=== PATIENT | female | born 1960 | race American Indian/Alaskan Native ===

== ENCOUNTER 2017-12-30 16:01 | Emergency (ER) | payer OTHER ==
[2017-12-30 16:01] VITALS: BMI 36.1
[2017-12-30 16:31] VITALS: O2SAT 100
--- NOTE | 2017-12-30 16:31 | ED PDOC ---
Arrival/HPI - General Chief Complaint: Lower Extremity Problem/Injury Time Seen by Provider: 12/30/17 16:09 Historian: Patient - History of Present Illness Narrative History of Present Illness (Text): 12/30/17 16:41 A 57 year old female, whose past medical history includes hypertension and diabetes, accompanied by sister, presents to the emergency department complaining of left heel pain. Patient reports when stepping down on left foot is when pain occurs and is unable to ambulate well. Patient uses a cane. She denies any fall/trauma, or any other complaints at this time. Also, patient mentions visiting her associate agent insurance sales last week and states regularly visits for check -up. No PMD Past Medical History - Provider Review Nursing Documentation Reviewed: Yes - Tetanus Immunization Tetanus Immunization: Unknown - Cardiac Hx Cardiac Disorders: Yes Hx Hypertension: Yes - Pulmonary Hx Respiratory Disorders: No - Neurological Hx Neurological Disorder: No - HEENT Hx HEENT Disorder: No - Renal Hx Renal Disorder: No - Endocrine/Metabolic Hx Endocrine Disorders: Yes Hx Diabetes Mellitus Type 1: Yes - Hematological/Oncological Hx Blood Disorders: No - Integumentary Hx Dermatological Disorder: No - Musculoskeletal/Rheumatological Hx Musculoskeletal Disorders: No Hx Falls: No - Gastrointestinal Hx Gastrointestinal Disorders: No - Genitourinary/Gynecological Hx Genitourinary Disorders: No - Psychiatric Hx Psychophysiologic Disorder: No Hx Depression: No Hx Emotional Abuse: No Hx Physical Abuse: No Hx Substance Use: No - Past Surgical History Past Surgical History: Non-Contributing - Suicidal Assessment Feels Threatened In Home Enviroment: No Family/Social History - Physician Review Nursing Documentation Reviewed: Yes Family/Social History: No Known Family HX Smoking Status: Never Smoked Hx Alcohol Use: Yes (wine) Hx Substance Use: No Hx Substance Use Treatment: No Allergies/Home Meds Allergies/Adverse Reactions: Allergies No Known Allergies Allergy (Verified 12/30/17 16:19) Home Medications: Home Meds Medication Instructions Recorded Confirmed Insulin Glargine,Hum.rec.anlog 50 unit SC DAILY 07/03/13 12/30/17 [Lantus] DULoxetine [Cymbalta] 60 mg PO DAILY 10/01/16 12/30/17 Insulin Lispro [humALOG] 10 units SC .WITHMEALS 10/01/16 12/30/17 Levofloxacin [Levaquin] 500 mg PO DAILY 10/01/16 12/30/17 Metoprolol Succinate [Metoprolol 100 mg PO DAILY 10/01/16 12/30/17 Succinate] Olmesartan/Amlodipin/Hcthiazid 1 tab PO DAILY 10/01/16 12/30/17 [Tribenzor 40-10-25 mg Tablet] Review of Systems - Physician Review All systems were reviewed & negative as marked: Yes - Review of Systems Constitutional: absent: Other (patient denies any fall/trauma to left foot) Musculoskeletal: Other (pain to left heel, radiating slightly up lower leg) Physical Exam - Physical Exam Narrative Physical Exam (Text): Gen: VS reviewed, alert, well developed, well nourished, nontoxic, mild distress ENT: normal pharynx Eye: EOMI, PERRL Neck: no JVD, supple, no adenopathy CV: regular rate, regular rhythm, no rubs, no murmur, no gallops, S1, S2, pulses , equal and strong Pulm: no distress, clear to auscultation, no wheeze, no rhonchi, breath sounds equal, no rales Abd: soft, nontender, no guarding, no rebound, no rigidity, normal bowel sounds Ext: no edema Skin: good color, no rash, no cyanosis Psych: responds appropriately to questions, normal affect Neuro: oriented x 3, CN2-12 intact grossly, motor intact, sensation intact Vital Signs Reviewed: Yes Vital Signs Temp Pulse Resp BP Pulse Ox 12/30/17 18:07 18 12/30/17 18:04 97.9 F 71 18 134/78 100 12/30/17 16:22 97.6 F 74 16 138/86 100 Temperature: Afebrile Blood Pressure: Normal Pulse: Regular Respiratory Rate: Normal Appearance: Positive for: Well-Appearing, Non-Toxic, Comfortable Pain Distress: None Mental Status: Positive for: Alert and Oriented X 3 Medical Decision Making ED Course and Treatment: 12/30/17 16:42 Impression: 57 year old female with left heel pain. No acute findings on physical examination. Plan: -- Left Foot X-Ray -- Reassess and disposition Progress Notes: 12/30/17 19:49 patient was seen for heel pain, no trauma, no evidence of plantat fasciitis, or soft tissue infection. ddx including but not limited to muscles strain, tendonitis, arthritis. Patient was provided crutches, nsaids for pain control, patient referred to make a follow up appt with her associate agent insurance sales. - RAD Interpretation Radiology Orders: 12/30/17 16:38 FOOT LEFT 3 VIEWS ROUTINE [RAD] Stat - Scribe Statement The provider has reviewed the documentation as recorded by the Lizeth Aj Provider Scribe Attestation: All medical record entries made by the Scribe were at my direction and personally dictated by me. I have reviewed the chart and agree that the record accurately reflects my personal performance of the history, physical exam, medical decision making, and the department course for this patient. I have also personally directed, reviewed, and agree with the discharge instructions and disposition. Disposition/Present on Arrival - Present on Arrival Any Indicators Present on Arrival: No History of DVT/PE: No History of Uncontrolled Diabetes: No Urinary Catheter: No History of Decub. Ulcer: No History Surgical Site Infection Following: None - Disposition Have Diagnosis and Disposition been Completed?: Yes Diagnosis: Foot pain Disposition: HOME/ ROUTINE Disposition Time: 19:51 Condition: STABLE Discharge Instructions (ExitCare): Foot Care for Diabetics Print Language: ARGENTINE Additional Instructions: Follow up with your associate agent insurance sales as soon as possible. CHUNG YOUNGER, thank you for letting us take care of you today. Your provider was Dr. Husam Rowell and you were treated for LEFT FOOT PAIN. The emergency medical care you received today was directed at your acute symptoms. If you were prescribed any medication, please fill it and take as directed. It may take several days for your symptoms to resolve. Return to the Emergency Department if your symptoms worsen, do not improve, or if you have any other problems. Please contact your doctor or call one of the physicians/clinics you have been referred to that are listed on the Patient Visit Information form that is included in your discharge packet. Bring any paperwork you were given at discharge with you along with any medications you are taking to your follow up visit. Our treatment cannot replace ongoing medical care by a primary care provider outside of the emergency department. Thank you for allowing the [facility] team to be part of your care today. If you had an X-Ray or CT scan: A Radiologist will review the ED reading if any change in treatment is needed we will contact you. If you had a blood, urine, or wound culture: It will take several days for the results, if any change in treatment is needed we will contact you. If you had an STI test: It will take 48 hours for the results. Please call after 1 week if you have not heard back. Prescriptions: Ibuprofen [Motrin Tab] 600 mg PO QID #30 tab Forms: [facility] (Croatian), WORK NOTE
[2017-12-30 18:07] VITALS: BP 134/78; PULSE 71; RESP 18; TEMP 97.9
--- NOTE | 2017-12-31 10:13 | RAD ---
Date of service: 12/30/2017 PROCEDURE: Left Foot Radiographs. HISTORY: pain, focus plantar calcaneous COMPARISON: None. FINDINGS: BONES: Bone alignment and mineralization are normal. There is no acute displaced fracture or bone destruction. JOINTS: There is moderate degenerative osteoarthrosis in the talonavicular and subtalar joints. SOFT TISSUES: Normal. OTHER FINDINGS: None. IMPRESSION: No acute fracture or dislocation. 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
== END 2017-12-30 18:07 | disposition home or self-care (01) ==
LOC: ED 16:01
DX: M79.672 Pain in left foot (principal); E11.9 Type 2 diabetes mellitus without complications; I10 Essential (primary) hypertension

== ENCOUNTER 2018-01-23 21:12 | Emergency (ER) | payer OTHER ==
[2018-01-23 21:13] VITALS: BMI 36.1
--- NOTE | 2018-01-23 21:47 | ED PDOC ---
Arrival/HPI - General Chief Complaint: Trauma Time Seen by Provider: 01/23/18 21:15 Historian: Patient - History of Present Illness Narrative History of Present Illness (Text): 01/23/18 21:30 57 year old female, whose past medical history includes hypertension and diabetes, presents to the emergency department complaining of left knee and left elbow pain s/p fall. 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 Patient denies any fever, chills, chest pain, shortness of breath, nausea, vomiting, diarrhea, urinary symptoms, back pain, neck pain, headache, dizziness, or any other complaints/injuries. PMD: None Symptom Onset: Sudden Symptom Course: Unchanged Activities at Onset: Light Context: Work Past Medical History - Provider Review Nursing Documentation Reviewed: Yes - Infectious Disease Hx of Infectious Diseases: None - Tetanus Immunization Tetanus Immunization: Unknown - Cardiac Hx Cardiac Disorders: Yes Hx Hypertension: Yes - Pulmonary Hx Respiratory Disorders: No - Neurological Hx Neurological Disorder: No - HEENT Hx HEENT Disorder: No - Renal Hx Renal Disorder: No - Endocrine/Metabolic Hx Endocrine Disorders: Yes Hx Diabetes Mellitus Type 1: Yes - Hematological/Oncological Hx Blood Disorders: No - Integumentary Hx Dermatological Disorder: No - Musculoskeletal/Rheumatological Hx Musculoskeletal Disorders: No Hx Falls: No - Gastrointestinal Hx Gastrointestinal Disorders: No - Genitourinary/Gynecological Hx Genitourinary Disorders: No - Psychiatric Hx Psychophysiologic Disorder: No Hx Depression: No Hx Emotional Abuse: No Hx Physical Abuse: No Hx Substance Use: No - Past Surgical History Past Surgical History: Non-Contributing - Suicidal Assessment Feels Threatened In Home Enviroment: No Family/Social History - Physician Review Nursing Documentation Reviewed: Yes Family/Social History: No Known Family HX Smoking Status: Never Smoked Hx Alcohol Use: Yes (wine) Hx Substance Use: No Hx Substance Use Treatment: No Allergies/Home Meds Allergies/Adverse Reactions: Allergies No Known Allergies Allergy (Verified 12/30/17 16:19) Home Medications: Home Meds Medication Instructions Recorded Confirmed Insulin Glargine,Hum.rec.anlog 50 unit SC DAILY 07/03/13 12/30/17 [Lantus] DULoxetine [Cymbalta] 60 mg PO DAILY 10/01/16 12/30/17 Insulin Lispro [humALOG] 10 units SC .WITHMEALS 10/01/16 12/30/17 Levofloxacin [Levaquin] 500 mg PO DAILY 10/01/16 12/30/17 Metoprolol Succinate [Metoprolol 100 mg PO DAILY 10/01/16 12/30/17 Succinate] Olmesartan/Amlodipin/Hcthiazid 1 tab PO DAILY 10/01/16 12/30/17 [Tribenzor 40-10-25 mg Tablet] Review of Systems - Physician Review All systems were reviewed & negative as marked: Yes - Review of Systems Constitutional: absent: Fevers, Other (Chills) Respiratory: absent: SOB Cardiovascular: absent: Chest Pain Gastrointestinal: absent: Diarrhea, Nausea, Vomiting Genitourinary Female: absent: Dysuria, Frequency, Hematuria Musculoskeletal: Other (left knee and left elbow pain). absent: Back Pain, Neck Pain Neurological: absent: Headache, Dizziness Physical Exam Vital Signs Reviewed: Yes Vital Signs Pulse Ox 01/23/18 22:39 99 Appearance: Positive for: Well-Appearing, Non-Toxic, Comfortable Pain Distress: None Mental Status: Positive for: Alert and Oriented X 3 - Systems Exam Head: Present: Atraumatic, Normocephalic Pupils: Present: PERRL Extroacular Muscles: Present: EOMI Conjunctiva: Present: Normal Mouth: Present: Moist Mucous Membranes Neck: Present: Normal Range of Motion Respiratory/Chest: Present: Clear to Auscultation, Good Air Exchange. No: Respiratory Distress, Accessory Muscle Use Cardiovascular: Present: Regular Rate and Rhythm, Normal S1, S2. No: Murmurs Abdomen: No: Tenderness, Distention, Peritoneal Signs Back: Present: Normal Inspection Upper Extremity: Present: Normal Inspection. No: Cyanosis, Edema Lower Extremity: Present: Normal Inspection. No: Edema Neurological: Present: GCS=15, CN II-XII Intact, Speech Normal Skin: Present: Warm, Dry, Normal Color. No: Rashes Psychiatric: Present: Alert, Oriented x 3, Normal Insight, Normal Concentration Medical Decision Making ED Course and Treatment: 01/23/18 21:30 Impression: 57 year old female presents complaining of left knee and elbow pain s/p fall. Plan: -- Tylenol -- Elbow left 2V x-ray -- Knee Left 2V x-ray -- Reassess and disposition Prior Visits: Notes and results from previous visits were reviewed. Progress Notes: 01/23/18 22:34 Elbow left 2V x-ray Impression: As read by me, negative. Knee Left 2V x-ray Impression: As read by me, negative. 01/23/18 22:36 On re-evaluation, patient feels better and is in no acute distress. I have discussed the results and plan with the patient, who expresses understanding. Patient in agreement with plan to be discharged home. Patient is stable for discharge. Patient was instructed to follow up with physician or return if symptoms worsen or new concerning symptoms arise. - RAD Interpretation Radiology Orders: 01/23/18 21:28 ELBOW LEFT 3 VIEWS ROUTINE [RAD] Stat KNEE LEFT 2 VIEWS (AP & LAT) [RAD] Stat - Medication Orders Current Medication Orders: Discontinued Medications Acetaminophen (Tylenol 325mg Tab) 650 mg PO STAT STA Stop: 01/23/18 21:29 Last Admin: 01/23/18 21:36 Dose: 650 mg MAR Pain/Vitals Document 01/23/18 21:36 JOL (Rec: 01/23/18 21:37 JOL [id number]) Pain Reassessment Is This A Pain ReAssessment? No Sleep Is patient sleeping during reassessment? No Presence of Pain Presence of Pain Yes Pain Scale Used Pain Scale Used Numeric Location Left, Right or Bilateral Left Pain Location Body Site Elbow Intensity 5 Scale Used Numeric - Scribe Statement The provider has reviewed the documentation as recorded by the Scribe Scribe Attestation: Louise Holman MD Scribe Attestation: All medical record entries made by the Scribe were at my direction and personally dictated by me. I have reviewed the chart and agree that the record accurately reflects my personal performance of the history, physical exam, medical decision making, and the department course for this patient. I have also personally directed, reviewed, and agree with the discharge instructions and disposition. Disposition/Present on Arrival - Present on Arrival Any Indicators Present on Arrival: No History of DVT/PE: No History of Uncontrolled Diabetes: No Urinary Catheter: No History of Decub. Ulcer: No History Surgical Site Infection Following: None - Disposition Have Diagnosis and Disposition been Completed?: Yes Diagnosis: Contusion of knee, left, Elbow injury Disposition: HOME/ ROUTINE Disposition Time: 22:35 Condition: GOOD Discharge Instructions (ExitCare): Contusion (DC) Forms: [facility] (Sammarinese)
[2018-01-23 22:40] VITALS: O2SAT 99
--- NOTE | 2018-01-24 10:59 | RAD ---
Date of service: 01/23/2018 PROCEDURE: Left Knee Radiographs. HISTORY: Posttraumatic pain COMPARISON: None. FINDINGS: BONES: No acute fracture. Proliferative hypertrophic changes emanating from the femoral condyle and tibial plateau regions. JOINTS: Medial lateral compartment degenerative change. JOINT EFFUSION: None. OTHER FINDINGS: None. IMPRESSION: No acute findings related to/accounting for the clinical presentation. .
--- NOTE | 2018-01-24 10:59 | RAD ---
Date of service: 01/23/2018 PROCEDURE: Radiographs of the left elbow. HISTORY: fall COMPARISON: No prior. FINDINGS: BONES: Normal. No fracture. JOINTS: Normal. No osteoarthritis. SOFT TISSUES: Normal. JOINT EFFUSION: None. OTHER FINDINGS: None IMPRESSION: Unremarkable radiographs of the left elbow.
== END 2018-01-23 22:39 | disposition home or self-care (01) ==
LOC: ED 21:12
DX: S80.02XA Contusion of left knee, initial encounter (principal); S59.902A Unspecified injury of left elbow, initial encounter; W10.9XXA Fall (on) (from) unspecified stairs and steps, initial encounter; Y92.238 Other place in hospital as the place of occurrence of the external cause; Y99.0 Civilian activity done for income or pay

== ENCOUNTER 2018-05-21 21:11 | Emergency (ER) | payer OTHER ==
[2018-05-21 21:29] VITALS: RESP 18; BMI 35.2
--- NOTE | 2018-05-21 21:54 | ED PDOC ---
Arrival/HPI - General Chief Complaint: Weakness/Neurological Deficit Time Seen by Provider: 05/21/18 21:25 Historian: Patient - History of Present Illness Narrative History of Present Illness (Text): 05/21/18 21:50 57 year old female, whose past medical history includes hypertension and IDDM, presents to the emergency department with left hand pain an tingling, since 15:00 today. Patient states she was at work and began feeling intermittent pain in her left hand, with radiation to left arm. Patient informs of some intermittent tingling and numbness to the left arm as well. Patient states when pain comes on, she cannot squeeze things well with her left. Patient informs a previous diagnosis of carpal tunnel syndrome in the left hand, but has not followed up with neurologist. Patient denies any fevers, chills, headache, dizziness, chest pain, shortness of breath, cough, abdominal pain, nausea, vomiting, diarrhea, back pain, neck pain, urinary/bowel changes, or any other complaint. 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[place]) Past Medical History - Provider Review Nursing Documentation Reviewed: Yes - Infectious Disease Hx of Infectious Diseases: None - Tetanus Immunization Tetanus Immunization: Unknown - Cardiac Hx Cardiac Disorders: Yes Hx Hypertension: Yes - Pulmonary Hx Respiratory Disorders: No - Neurological Hx Neurological Disorder: No - HEENT Hx HEENT Disorder: No - Renal Hx Renal Disorder: No - Endocrine/Metabolic Hx Endocrine Disorders: Yes Hx Diabetes Mellitus Type 1: Yes - Hematological/Oncological Hx Blood Disorders: No - Integumentary Hx Dermatological Disorder: No - Musculoskeletal/Rheumatological Hx Musculoskeletal Disorders: No - Gastrointestinal Hx Gastrointestinal Disorders: No - Genitourinary/Gynecological Hx Genitourinary Disorders: No - Psychiatric Hx Psychophysiologic Disorder: No Hx Substance Use: No - Past Surgical History Past Surgical History: Non-Contributing - Suicidal Assessment Feels Threatened In Home Enviroment: No Family/Social History - Physician Review Nursing Documentation Reviewed: Yes Family/Social History: No Known Family HX Smoking Status: Never Smoked Hx Alcohol Use: Yes (wine) Hx Substance Use: No Hx Substance Use Treatment: No Allergies/Home Meds Allergies/Adverse Reactions: Allergies No Known Allergies Allergy (Verified 12/30/17 16:19) Home Medications: Home Meds Medication Instructions Recorded Confirmed Insulin Glargine,Hum.rec.anlog 50 unit SC DAILY 07/03/13 12/30/17 [Lantus] DULoxetine [Cymbalta] 60 mg PO DAILY 10/01/16 12/30/17 Insulin Lispro [humALOG] 10 units SC .WITHMEALS 10/01/16 12/30/17 Levofloxacin [Levaquin] 500 mg PO DAILY 10/01/16 12/30/17 Metoprolol Succinate 100 mg PO DAILY 10/01/16 12/30/17 Olmesartan/Amlodipin/Hcthiazid 1 tab PO DAILY 10/01/16 12/30/17 [Tribenzor 40-10-25 mg Tablet] Review of Systems - Physician Review All systems were reviewed & negative as marked: Yes - Review of Systems Constitutional: Normal. absent: Fevers, Night Sweats Eyes: Normal ENT: Normal Respiratory: Normal. absent: SOB, Cough Cardiovascular: Normal. absent: Chest Pain Gastrointestinal: Normal. absent: Abdominal Pain, Diarrhea, Nausea, Vomiting Genitourinary Female: Normal Musculoskeletal: Normal, Myalgias (pain in left hand ). absent: Back Pain, Neck Pain Skin: Normal Neurological: Normal. absent: Headache, Dizziness Endocrine: Normal Hemo/Lymphatic: Normal Psychiatric: Normal Physical Exam Vital Signs Reviewed: Yes Vital Signs Temp Pulse Resp BP Pulse Ox 05/21/18 21:15 97.7 F 81 18 110/74 99 Temperature: Afebrile Blood Pressure: Normal Pulse: Regular Respiratory Rate: Normal Appearance: Positive for: Well-Appearing, Non-Toxic, Comfortable Pain Distress: None Mental Status: Positive for: Alert and Oriented X 3 - Systems Exam Head: Present: Atraumatic, Normocephalic Pupils: Present: PERRL Extroacular Muscles: Present: EOMI Conjunctiva: Present: Normal Mouth: Present: Moist Mucous Membranes Neck: Present: Normal Range of Motion Respiratory/Chest: Present: Clear to Auscultation, Good Air Exchange. No: Respiratory Distress, Accessory Muscle Use Cardiovascular: Present: Regular Rate and Rhythm, Normal S1, S2. No: Murmurs Abdomen: No: Tenderness, Distention, Peritoneal Signs Back: Present: Normal Inspection Upper Extremity: Present: Normal Inspection. No: Cyanosis, Edema Lower Extremity: Present: Normal Inspection. No: Edema Neurological: Present: GCS=15, CN II-XII Intact, Speech Normal, Motor Func Grossly Intact, Normal Sensory Function, Normal Cerebellar Funct, Normal 2Pt Descrimination Skin: Present: Warm, Dry, Normal Color. No: Rashes Psychiatric: Present: Alert, Oriented x 3, Normal Insight, Normal Concentration Medical Decision Making ED Course and Treatment: 05/21/18 21:56 Impression: 57 year old female presents with left hand and left arm pain, weakness, and tingling. Plan: -- CT head -- Labs -- EKG -- Ibuprofen -- Reassess and disposition Prior Visits: Notes and results from previous visits were reviewed. Progress Notes: 05/21/18 23:23 Labs reviewed with MANUEL noted(creatinine 1.3; previously 0.8) and hypokalemia of 3.1. Findings provided to patient who does not desire to stay. She is adamant in following up with her PCP. CTH pending. - RAD Interpretation Narrative RAD Interpretations (Text): 05/22/18 00:21 CT of the head Clinical history: left upper extremity tingling. Technique: Multiple axial CT images were obtained through the head without administration of contrast. DLP 895.19 Comparison: None. Findings: The ventricles and sulci are symmetric bilaterally. There is no evidence of acute hemorrhage or infarct. There is no midline shift, mass effect, or extra-axial fluid collection. The osseous structures are unremarkable. The visualized paranasal sinuses and mastoid air cells are clear. Impression: Negative study. - Scribe Statement The provider has reviewed the documentation as recorded by the Lizeth Javier Provider Scribe Attestation: All medical record entries made by the Billibmarlene were at my direction and personally dictated by me. I have reviewed the chart and agree that the record accurately reflects my personal performance of the history, physical exam, medical decision making, and the department course for this patient. I have also personally directed, reviewed, and agree with the discharge instructions and di sposition. Disposition/Present on Arrival - Present on Arrival Any Indicators Present on Arrival: No History of DVT/PE: No History of Uncontrolled Diabetes: No Urinary Catheter: No History of Decub. Ulcer: No History Surgical Site Infection Following: None - Disposition Have Diagnosis and Disposition been Completed?: Yes Diagnosis: Elevated serum creatinine, Hypokalemia, Arm paresthesia, left Disposition: HOME/ ROUTINE Disposition Time: 00:24 Patient Plan: Discharge Patient Problems: Current Active Problems Problem Status Onset Elevated serum creatinine Acute Hypokalemia Acute Discharge Instructions (ExitCare): Paresthesias (DC), Hypokalemia (DC) Print Language: MONGOLIAN Additional Instructions: All medical record entries made by the Scribe were at my direction and personally dictated by me. I have reviewed the chart and agree that the record accurately reflects my personal performance of the history, physical exam, medical decision making, and the department course for this patient. I have also personally directed, reviewed, and agree with the discharge instructions and disposition. Your creatinine increased from 0.9 to 1.3, please monitor Your BUN increased from 24 to 34, please monitor Referrals: Lars Cummings MD [Staff Provider] - Follow up with primary Forms: [facility] (Vietnamese)
[2018-05-21 22:51] LABS: ALBUMIN 3.8 g/dL (3.0-4.8)
[2018-05-21 22:52] LABS: BASO # 0.02 K/mm3 (0.0-2.0); BASO % 0.5 % (0.0-3.0); EOS # 0.1 (0.0-0.7); EOS % 1.7 % (1.5-5.0); GRAN # 2.08 (1.4-6.5); GRAN % 50.6 % (50.0-68.0); HEMOGLOBIN 10.6 g/dL (12.0-16.0); LYMPH # 1.4 (1.2-3.4); LYMPH % 34.8 % (22.0-35.0); MEAN CELL VOLUME 81.6 fl (80.0-105.0); MEAN CORPUSCULAR HEMOGLOBIN 29.1 pg (25.0-35.0); MEAN CORPUSCULAR HGB CONC 35.7 g/dl (31.0-37.0); MONO # 0.5 (0.1-0.6); MONO % 12.4 % (1.0-6.0); RBC 3.64 10^6/uL (3.5-6.1); RED CELL DISTRIBUTION WIDTH 13.7 % (11.5-14.5); WHITE BLOOD COUNT 4.1 10^3/uL (4.5-11.0)
[2018-05-21] MEDS ORDERED: Potassium Chloride 40 mEq/30 ml LIQ UD PO STA (23:21)
[2018-05-21] MEDS ORDERED: Sodium Chloride 0.9% 1,000 ML IV STA (23:21)
[2018-05-22 03:05] VITALS: BP 131/68; PULSE 82; TEMP 97.8; O2SAT 100
--- NOTE | 2018-05-22 08:39 | CT ---
Date of service: 05/21/2018 PROCEDURE: CT HEAD WITHOUT CONTRAST. HISTORY: tingling to LUE COMPARISON: 06/24/2012 TECHNIQUE: Axial computed tomography images were obtained through the head/brain without intravenous contrast. Supplemental Coronal and Sagittal projections created and reviewed. Radiation dose: Total exam DLP = 895.19 mGy-cm. This CT exam was performed using one or more of the following dose reduction techniques: Automated exposure control, adjustment of the mA and/or kV according to patient size, and/or use of iterative reconstruction technique. FINDINGS: HEMORRHAGE: No intracranial hemorrhage. BRAIN: No mass effect or edema. No atrophy or chronic microvascular ischemic changes. VENTRICLES: Unremarkable. No hydrocephalus. CALVARIUM: Unremarkable. PARANASAL SINUSES: Unremarkable as visualized. No significant inflammatory changes. MASTOID AIR CELLS: Unremarkable as visualized. No inflammatory changes. OTHER FINDINGS: None. IMPRESSION: No acute intracranial abnormalities. No significant findings to account for the clinical presentation. No significant interval change compared to the prior examination(s). Concordant results (preliminary interpretation) provided by [employer]. Procedure Completed: 22:35. Preliminary Report: Dictated and Authenticated: 00:17. Final Interpretation: 08:35. May 22, 2018
== END 2018-05-22 00:34 | disposition home or self-care (01) ==
LOC: ED 21:11
DX: E87.6 Hypokalemia (principal); R74.8 Abnormal levels of other serum enzymes; R20.2 Paresthesia of skin; I10 Essential (primary) hypertension
CPT/HCPCS: 70450; 80053; 85025; 99285; J3480; J7030

== ENCOUNTER 2018-08-12 20:29 | Emergency (ER) | payer OTHER ==
[2018-08-12 20:33] VITALS: TEMP 97.8
[2018-08-12 20:40] VITALS: BMI 33.9
--- NOTE | 2018-08-12 20:43 | ED PDOC ---
Arrival/HPI - General Chief Complaint: Trauma Time Seen by Provider: 08/12/18 20:31 Historian: Patient - History of Present Illness Narrative History of Present Illness (Text): 08/12/18 20:39 57 year old female, whose past medical history includes hypertension and IDDM, presents to the emergency department complaining of left knee and left heel pain s/p trip and fall at work. Patient was working on the floor at [employer] [place] when she tr ipped over a commode injuring her left knee and left heel. Patient denies any loss of consciousness or head injury. She was able to get up without any assistance. Patient is currently on hypertension medication and admits to taking her dose prior to going to work today. Patient does report a history of lightheadedness, but denies any lightheadedness today. Patient denies any fever, chills, chest pain, shortness of breath, nausea, vomiting, diarrhea, urinary symptoms, back pain, neck pain, headache, dizziness, or any other complaints/Injuries. PMD: Dr. Dionisio Wasserman Time/Duration: Prior to Arrival Symptom Onset: Sudden Activities at Onset: Light Context: Work Past Medical History - Provider Review Nursing Documentation Reviewed: Yes - Infectious Disease Hx of Infectious Diseases: None - Tetanus Immunization Tetanus Immunization: Unknown - Cardiac Hx Cardiac Disorders: Yes Hx Hypertension: Yes - Pulmonary Hx Respiratory Disorders: No - Neurological Hx Neurological Disorder: No - HEENT Hx HEENT Disorder: No - Renal Hx Renal Disorder: No - Endocrine/Metabolic Hx Endocrine Disorders: Yes Hx Diabetes Mellitus Type 1: Yes - Hematological/Oncological Hx Blood Disorders: No - Integumentary Hx Dermatological Disorder: No - Musculoskeletal/Rheumatological Hx Musculoskeletal Disorders: No - Gastrointestinal Hx Gastrointestinal Disorders: No - Genitourinary/Gynecological Hx Genitourinary Disorders: No - Psychiatric Hx Psychophysiologic Disorder: No Hx Substance Use: No - Past Surgical History Past Surgical History: Non-Contributing - Suicidal Assessment Feels Threatened In Home Enviroment: No Family/Social History - Physician Review Nursing Documentation Reviewed: Yes Family/Social History: No Known Family HX Smoking Status: Never Smoked Hx Alcohol Use: Yes (wine) Hx Substance Use: No Hx Substance Use Treatment: No Allergies/Home Meds Allergies/Adverse Reactions: Allergies No Known Allergies Allergy (Verified 08/12/18 20:40) Home Medications: Home Meds Medication Instructions Recorded Confirmed Insulin Glargine,Hum.rec.anlog 50 unit SC DAILY 07/03/13 08/12/18 [Lantus] DULoxetine [Cymbalta] 60 mg PO DAILY 10/01/16 08/12/18 Insulin Lispro [humALOG] 10 units SC .WITHMEALS 10/01/16 08/12/18 Metoprolol Succinate 100 mg PO DAILY 10/01/16 08/12/18 Olmesartan/Amlodipin/Hcthiazid 1 tab PO DAILY 10/01/16 08/12/18 [Tribenzor 40-10-25 mg Tablet] Review of Systems - Physician Review All systems were reviewed & negative as marked: Yes - Review of Systems Constitutional: absent: Fevers, Other (chills) Respiratory: absent: SOB Cardiovascular: absent: Chest Pain Gastrointestinal: absent: Diarrhea, Nausea, Vomiting Musculoskeletal: Other (left knee pain and heel pain). absent: Back Pain, Neck Pain Neurological: Other ((+) lightheadedness, but not today (-) LOC). absent: Headache, Dizziness Physical Exam Vital Signs Temp Pulse Resp BP Pulse Ox 08/12/18 20:32 97.8 F 72 18 119/69 100 - Systems Exam Head: Present: Atraumatic, Normocephalic Mouth: Present: Moist Mucous Membranes Neck: Present: Normal Range of Motion Respiratory/Chest: Present: Clear to Auscultation, Good Air Exchange. No: Respiratory Distress, Accessory Muscle Use Cardiovascular: Present: Regular Rate and Rhythm, Normal S1, S2. No: Murmurs Back: Present: Normal Inspection Upper Extremity: Present: Normal Inspection. No: Cyanosis, Edema Lower Extremity: Present: NORMAL PULSES, Normal ROM (able to extend and flex left knee), Tenderness (tender to palpation of the proximal tib fib). No: Edema Neurological: Present: GCS=15, Speech Normal Skin: Present: Warm, Dry, Normal Color. No: Rashes Psychiatric: Present: Alert, Oriented x 3, Normal Insight, Normal Concentration Medical Decision Making ED Course and Treatment: 08/12/18 20:44 Impression: 57 year old female presents complaining of left knee and left heel pain s/p trip and fall over a commode at work. Differential Diagnosis included but are not limited to: -- Orthostatic hypertension -- Fracture of knee cap -- Dislocation of knee cap Plan: -- EKG -- Toradol -- Orthostatic Vital Signs -- Left foot 3V x-ray -- Left knee 2V x-ray -- Reassess and disposition Prior Visits: Notes and results from previous visits were reviewed. Progress Notes: - RAD Interpretation Apprentice Technician: ED Physician - EKG Interpretation Interpreted by ED Physician: Yes Type: 12 lead EKG - Scribe Statement The provider has reviewed the documentation as recorded by the Billibmarlene Holman Provider Scribe Attestation: All medical record entries made by the Scribe were at my direction and pe rsonally dictated by me. I have reviewed the chart and agree that the record accurately reflects my personal performance of the history, physical exam, medical decision making, and the department course for this patient. I have also personally directed, reviewed, and agree with the discharge instructions and disposition. Disposition/Present on Arrival - Present on Arrival Any Indicators Present on Arrival: No History of DVT/PE: No History of Uncontrolled Diabetes: No Urinary Catheter: No History of Decub. Ulcer: No History Surgical Site Infection Following: None - Disposition Have Diagnosis and Disposition been Completed?: Yes Diagnosis: Fall, Knee pain, left, Heel pain Disposition: HOME/ ROUTINE Disposition Time: 21:51 Condition: STABLE Discharge Instructions (ExitCare): Muscle and Bone Pain (DC), Knee Pain (DC) Print Language: KINYARWANDA Additional Instructions: All medical record entries made by the Scribe were at my direction and personally dictated by me. I have reviewed the chart and agree that the record accurately reflects my personal performance of the history, physical exam, medical decision making, and the department course for this patient. I have also personally directed, reviewed, and agree with the discharge instructions and disposition. Prescriptions: diaZEpam [Valium] 5 mg PO PRN PRN #4 tab PRN Reason: Muscle Spasm Referrals: Maine Olmstead MD [Medical Doctor] - Follow up with primary [facility] [place] [facility] [place] - Follow up with primary Forms: [employer] (Zambian), WORK NOTE
--- NOTE | 2018-08-12 20:57 | PCM.RRT ---
- Neurological Status (Select all that apply): Alert, Responsive, Oriented, Verbal, Follows Commands - Respiratory Oxygen Delivery Method: Room Air - Constitutional Appears: No Acute Distress - Head Head Exam: ATRAUMATIC, NORMAL INSPECTION, NORMOCEPHALIC - Eyes Eye Exam: EOMI, Normal appearance - Respiratory Exam Respiratory Exam: Clear to Ausculation Bilateral. absent: Accessory Muscle Use, Chest Wall Tenderness, Rales, Rhonchi, Wheezes - Cardiovascular Exam Cardiovascular Exam: RRR, +S1, +S2 - GI/Abdominal Exam GI & Abdominal Exam: Soft, Normal Bowel Sounds. absent: Tenderness, Organomegaly - Neurological Exam Neurological Exam: Alert, Awake, Oriented x3 - Extremities Exam Extremities Exam: Normal Capillary Refill. absent: Calf Tenderness Additional comments: Left knee tenderness to palpation. Plan - Assessment of Findings&Treatment Plan Domo Nugent, PGY1 CRIMINAL ANALYST Note for Dr. Almazan Medical team responded to CRIMINAL ANALYST on the 2nd floor. 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 She was found to be sitting in a chair with nursing staff present. Patient is awake, alert, and oriented x3. She says that she tripped over a patient's commode and as she fell she hit her left knee. Vital signs are stable. BP noted to be 120/75 and HR 75. She is saturating well on room air with no difficulties in breathing and does not endorse any chest pain. This is likely a mechanical fall. She had no episodes of dizziness or lightheadedness. She is having some trouble bearing weight so wheel chair was brought so patient could be transferred down to the ED. Patient was safely transported. Case was discussed with the ED Attending Physician. Further care as per ED.
[2018-08-12 23:37] VITALS: BP 121/70; PULSE 67; RESP 16; O2SAT 99
--- NOTE | 2018-08-13 09:06 | RAD ---
Date of service: 08/12/2018 PROCEDURE: Left Foot Radiographs. HISTORY: fall COMPARISON: None. FINDINGS: BONES: Normal. No fracture. JOINTS: Normal. SOFT TISSUES: Normal. OTHER FINDINGS: None. IMPRESSION: Normal left foot radiographs.
--- NOTE | 2018-08-13 09:07 | RAD ---
Date of service: 08/12/2018 PROCEDURE: Left Knee Radiographs. HISTORY: Pain. COMPARISON: None. FINDINGS: BONES: Normal. No fracture. JOINTS: Tricompartmental osteoarthritis most pronounced in the patellofemoral compartment. No articular erosion. JOINT EFFUSION: None. OTHER FINDINGS: None. IMPRESSION: Tricompartmental osteoarthritis.
== END 2018-08-12 23:20 | disposition home or self-care (01) ==
LOC: ED 20:29
DX: M25.562 Pain in left knee (principal); M79.672 Pain in left foot; W01.0XXA Fall on same level from slipping, tripping and stumbling without subsequent striking against object, initial encounter; Y92.238 Other place in hospital as the place of occurrence of the external cause; Y99.0 Civilian activity done for income or pay
CPT/HCPCS: 73560; 73630; 96372; 99284; J1885

== ENCOUNTER 2018-10-05 14:45 | Outpatient (CLI) | payer OTHER | END 2018-10-05 14:46 | disposition home or self-care (01) | LOC: RAD 14:45 ==

== ENCOUNTER 2018-10-14 03:05 | Emergency (ER) | payer OTHER ==
[2018-10-14 03:05] VITALS: BMI 36.1
[2018-10-14 03:13] VITALS: BP 167/94; PULSE 71; RESP 20; TEMP 97.7; O2SAT 97
--- NOTE | 2018-10-14 03:25 | ED PDOC ---
Arrival/HPI - General Chief Complaint: Lower Extremity Problem/Injury Time Seen by Provider: 10/14/18 03:06 Historian: Patient - History of Present Illness Narrative History of Present Illness (Text): 10/14/18 03:22 A 58 year old female, whose past medical history includes DM, HTN, presents to the Emergency department with a complaint of discomfort to the right foot/ankle area. Specifically to the dorsal surface and instep of the right ankle. Patient states that she felt something pop. The patient is able to ambulate, but has some pain when bearing weight on the area. No history of any blunt trauma/ injury. Time/Duration: Prior to Arrival Symptom Onset: Sudden Symptom Course: Unchanged Activities at Onset: Rest, Light Context: Home Past Medical History - Provider Review Nursing Documentation Reviewed: Yes - Infectious Disease Hx of Infectious Diseases: None - Tetanus Immunization Tetanus Immunization: Unknown - Cardiac Hx Cardiac Disorders: Yes Hx Hypertension: Yes - Pulmonary Hx Respiratory Disorders: No - Neurological Hx Neurological Disorder: No - HEENT Hx HEENT Disorder: No - Renal Hx Renal Disorder: No - Endocrine/Metabolic Hx Endocrine Disorders: Yes Hx Diabetes Mellitus Type 1: Yes - Hematological/Oncological Hx Blood Disorders: No - Integumentary Hx Dermatological Disorder: No - Musculoskeletal/Rheumatological Hx Musculoskeletal Disorders: No - Gastrointestinal Hx Gastrointestinal Disorders: No - Genitourinary/Gynecological Hx Genitourinary Disorders: No - Psychiatric Hx Psychophysiologic Disorder: No Hx Substance Use: No - Past Surgical History Past Surgical History: Non-Contributing - Suicidal Assessment Feels Threatened In Home Enviroment: No Family/Social History - Physician Review Nursing Documentation Reviewed: Yes Family/Social History: No Known Family HX Smoking Status: Never Smoked Hx Alcohol Use: Yes (wine) Hx Substance Use: No Hx Substance Use Treatment: No Allergies/Home Meds Allergies/Adverse Reactions: Allergies No Known Allergies Allergy (Verified 10/14/18 03:13) Home Medications: Home Meds Medication Instructions Recorded Confirmed Insulin Glargine,Hum.rec.anlog 50 unit SC DAILY 07/03/13 08/12/18 [Lantus] DULoxetine [Cymbalta] 60 mg PO DAILY 10/01/16 08/12/18 Insulin Lispro [humALOG] 10 units SC .WITHMEALS 10/01/16 08/12/18 Metoprolol Succinate 100 mg PO DAILY 10/01/16 08/12/18 Olmesartan/Amlodipin/Hcthiazid 1 tab PO DAILY 10/01/16 08/12/18 [Tribenzor 40-10-25 mg Tablet] Review of Systems - Physician Review All systems were reviewed & negative as marked: Yes - Review of Systems Musculoskeletal: Other (Right foot/ ankle pain) Physical Exam Vital Signs Reviewed: Yes Vital Signs Temp Pulse Resp BP Pulse Ox 10/14/18 03:12 97.7 F 71 20 167/94 H 97 Temperature: Afebrile Blood Pressure: Hypertensive Pulse: Regular Respiratory Rate: Normal Appearance: Positive for: Well-Appearing, Non-Toxic, Comfortable Pain Distress: None Mental Status: Positive for: Alert and Oriented X 3 - Systems Exam Head: Present: Atraumatic, Normocephalic Pupils: Present: PERRL Extroacular Muscles: Present: EOMI Conjunctiva: Present: Normal Mouth: Present: Moist Mucous Membranes Neck: Present: Normal Range of Motion Respiratory/Chest: Present: Clear to Auscultation, Good Air Exchange. No: Respiratory Distress, Accessory Muscle Use Cardiovascular: Present: Regular Rate and Rhythm, Normal S1, S2. No: Murmurs Abdomen: No: Tenderness, Distention, Peritoneal Signs Back: Present: Normal Inspection Upper Extremity: Present: Normal Inspection. No: Cyanosis, Edema Lower Extremity: Present: Normal Inspection, Normal ROM (Some pain to the dorsal surface and proximal right foot and right ankle area with flexion and extension. ), Neurovascularly Intact. No: Edema, Swelling, Deformity Neurological: Present: GCS=15, CN II-XII Intact, Speech Normal Skin: Present: Warm, Dry, Normal Color. No: Rashes Psychiatric: Present: Alert, Oriented x 3, Normal Insight, Normal Concentration Medical Decision Making ED Course and Treatment: 10/14/18 03:25 Impression: A 58 year old female presents to the Emergency department with a complaint of pain to the dorsal surface and proximal right foot and right ankle area. Plan: -- Right Ankle/ Right Foot X- Rays -- Ultram -- Reassess and disposition Prior Visits: Notes and results from previous visits were reviewed. Progress Notes: 10/14/18 03:26 - RAD Interpretation Radiology Orders: 10/14/18 03:17 FOOT RIGHT 3 VIEWS ROUTINE [RAD] Stat 10/14/18 03:18 ANKLE RIGHT 3 VIEWS ROUTINE [RAD] Stat - Medication Orders Current Medication Orders: Tramadol HCl (Ultram) 50 mg PO STAT STA Stop: 10/14/18 03:19 - Scribe Statement The provider has reviewed the documentation as recorded by the Billibmarlene Garcia Provider Billibe Attestation: All medical record entries made by the Scribe were at my direction and personally dictated by me. I have reviewed the chart and agree that the record accurately reflects my personal performance of the history, physical exam, medical decision making, and the department course for this patient. I have also personally directed, reviewed, and agree with the discharge instructions and disposition. Disposition/Present on Arrival - Present on Arrival Any Indicators Present on Arrival: No History of DVT/PE: No History of Uncontrolled Diabetes: No Urinary Catheter: No History of Decub. Ulcer: No History Surgical Site Infection Following: None - Disposition Have Diagnosis and Disposition been Completed?: Yes Diagnosis: Foot sprain Disposition: HOME/ ROUTINE Disposition Time: 04:04 Patient Plan: Discharge Condition: GOOD Discharge Instructions (ExitCare): Foot Sprain (DC) Additional Instructions: Maintain splint/no weight bearing on the area/use crutches/take meds as prescribed/follow up with your twist maker next couple of days as scheduled Prescriptions: traMADol/Acetaminophen [Ultracet 325 MG-37.5 MG] 1 tab PO Q6 PRN #12 tab PRN Reason: Pain Referrals: Dionisio Wasserman MD [Primary Care Provider] - Follow up with primary Forms: [email or web address] (Iranian), WORK NOTE
--- NOTE | 2018-10-14 11:41 | RAD ---
Date of service: 10/14/2018 PROCEDURE: Right Foot Radiographs. Three views. HISTORY: Right foot Pain. No history of recent/ related trauma provided. COMPARISON: None. TECHNIQUE: 3 views obtained. FINDINGS: BONES: Normal. No fracture. Incidental small plantar calcaneal spur. JOINTS: Normal. SOFT TISSUES: Soft tissue swelling at the level of the tarsal bones. OTHER FINDINGS: None. IMPRESSION: Soft tissue swelling without acute articular or osseous abnormality.
--- NOTE | 2018-10-14 11:57 | RAD ---
Date of service: 10/14/2018 PROCEDURE: Right Ankle Radiographs. HISTORY: pain COMPARISON: None available. TECHNIQUE: 3 views obtained. FINDINGS: BONES: No visible fracture. Small plantar calcaneal spur. JOINTS: Normal. No osteoarthritis. Ankle mortise maintained. Talar dome intact SOFT TISSUES: Circumferential soft tissue swelling without associated fracture. OTHER FINDINGS: None. IMPRESSION: Soft tissue swelling without acute articular or osseous abnormality.
== END 2018-10-14 04:52 | disposition home or self-care (01) ==
LOC: ED 03:05
DX: S93.601A Unspecified sprain of right foot, initial encounter (principal); X58.XXXA Exposure to other specified factors, initial encounter; I10 Essential (primary) hypertension; E11.9 Type 2 diabetes mellitus without complications